=== PATIENT | female | born 1995 | race Caucasian/White ===

== ENCOUNTER 2019-09-01 19:02 | Emergency (ER) | payer SELFPAY ==
[~2019-09-01] VITALS: Ht 160 cm; Wt 52.3 kg
[~2019-09-01 19:02] MED LIST: NO HOME MEDICATIONS
[2019-09-01 19:06] VITALS: BP 114/74; PULSE 79; TEMP 98.3
== END 2019-09-01 20:05 | disposition home or self-care (01) ==
LOC: COL.ER 19:02
DX: G44.209 Tension-type headache, unspecified, not intractable (principal)
CPT/HCPCS: J0780; J1885